=== PATIENT | female | born 1990 | race Caucasian/White ===

== ENCOUNTER 2020-02-10 08:40 | Emergency (ER) | payer BC ==
--- NOTE | 2020-02-10 09:00 | EDM.PDOC ---
ED HPI GENERAL MEDICAL PROBLEM - General Chief Complaint: ENT Problem Stated Complaint: RIGHT EYE ISSUE Time Seen by Provider: 02/10/20 08:45 Source of Information: Reports: Patient, RN, RN Notes Reviewed History Limitations: Reports: No Limitations - History of Present Illness INITIAL COMMENTS - FREE TEXT/NARRATIVE: Patient presents to ER with complaint of swelling and redness around the right eye. She states it began last she was seen in urgent care at her [place] and [place]. She was told to take Benadryl, [id number] allergy medications. No antibiotics prescribed at that time. Patient states she also has a hard, fixed lymph node in the neck. She denies fever chills. Denies getting anything in her eye. Patient denies any blurred vision double vision or difficulty seeing. Patient states she has not been wearing her contacts since this began. States it is gotten worse over the past 4 days. Onset: Gradual Onset Date: 02/05/20 Duration: Constant, Getting Worse Location: Reports: Face - Related Data Allergies Allergy/AdvReac Type Severity Reaction Status Date / Time No Known Allergies Allergy Verified 02/10/20 08:52 Home Meds: Home Meds Sertraline [Zoloft] 50 mg PO DAILY 02/10/20 [History] ED ROS GENERAL - Review of Systems Review Of Systems: Comprehensive ROS is negative, except as noted in HPI. ED EXAM GENERAL W FULL EYE - Physical Exam Exam: See Below Exam Limited By: No Limitations General Appearance: Alert, WD/WN, No Apparent Distress Eye Exam: Right Eye: Periorbital Changes (swelling, redness), Bilateral Eye: EOMI With Correction: No Eyelids: Right: Edema, Erythema Conjunctiva & Sclera: Bilateral: Normal Appearance Extraocular Movements: Bilateral: Intact Pupils: Normal Accommodation Pupillary Size: Bilateral: 3 mm Pupillary Reaction: Bilateral: Brisk Ears: Normal External Exam, Hearing Grossly Normal Nose: Normal Inspection Throat/Mouth: Normal Inspection, Normal Voice, No Airway Compromise Head: Atraumatic, Normocephalic Neck: Normal Inspection, Supple, Non-Tender, Full Range of Motion Respiratory/Chest: No Respiratory Distress, Lungs Clear, Normal Breath Sounds, No Accessory Muscle Use, Chest Non-Tender Cardiovascular: Normal Peripheral Pulses, Regular Rate, Rhythm, No Edema, No Gallop, No JVD, No Murmur, No Rub GI/Abdominal: Normal Bowel Sounds, Soft, Non-Tender, No Organomegaly, No Distention, No Abnormal Bruit, No Mass (Female) Exam: Deferred Rectal (Female) Exam: Deferred Back Exam: Normal Inspection, Full Range of Motion, NT Extremities: Normal Inspection, Normal Range of Motion, Non-Tender, Normal Capillary Refill, No Pedal Edema Neurological: Alert, Oriented, CN II-XII Intact, Normal Cognition, Normal Gait, Normal Reflexes, No Motor/Sensory Deficits Psychiatric: Normal Affect, Normal Mood Skin Exam: Erythema (around right eye), Increased Warmth (around right eye) Lymphatic: No Adenopathy Departure - Departure Time of Disposition: 08:58 Disposition: Home, Self-Care 01 Condition: Good Clinical Impression: Periorbital cellulitis of right eye - Discharge Information *PRESCRIPTION DRUG MONITORING PROGRAM REVIEWED*: No *COPY OF PRESCRIPTION DRUG MONITORING REPORT IN PATIENT BEN: No Instructions: Orbital Cellulitis, Cellulitis, Adult, [id number] Forms: ED Department Discharge Additional Instructions: RX: Cephalexin Continue using over the counter antihistamines/allergy medications Do not wear contacts until resolved If no improvement, follow up with your primary care facility
== END 2020-02-10 09:13 | disposition home or self-care (01) ==
LOC: DL.ED 08:40
DX: L03.213 Periorbital cellulitis (principal); Z79.899 Other long term (current) drug therapy
CPT/HCPCS: 99282